=== PATIENT | male | born 1950 | race African-American/Black ===

== ENCOUNTER → 2017-12-14 | Outpatient (CLI) | payer OTHER ==
[~2017-12-14] MED LIST: ASPIRIN325; ATENOLOL 100MG100 M2; CIALIS20 MG; DIOVAN HCT 3201 EAC1; EFFIENT10 MG OR; INSPRA50 MG; LIPITOR80 MG
--- NOTE | ~2017-12-14 | 2DMMODE ---
[facility] [place] [address] 2 D/M-MODE ECHOCARDIOGRAM Name: ZACH NICE Room #: REG [facility]#: [id number] Admission: 12/14/17 Attend Phys: Juancarlos York MD Discharge: Date of : 46 Date of Service: 12/14/17 0954 Report #: [id number] THIS REPORT FOR: //name// APPROVED REPORT Study performed: 12/14/2017 07:46:03 EXAM: Comprehensive 2D, Doppler, and color-flow Echocardiogram Patient Location: Out-Patient Status: routine BSA: 2.44 HR: 76 bpm BP: 152/100 mmHg Rhythm: NSR/some arrhythmia noted Other Information Study Quality: Good Indications CAD. Hx: Stent, HTN, HLP, DM 2D Dimensions RVDd: 39.76 mm LVEF(%): 54.06 (>50%) IVSd: 11.47 (7-11mm) LVOT Diam: 22.63 (18-24mm) LVDd: 48.62 mm PWd: 12.13 (7-11mm) Ascending Ao: 31.17 (22-36mm) LVDs: 35.00 (25-40mm) Aortic Root: 35.02 mm Hart's LVEF: 54.06 % Volumes Left Atrial Volume (Systole) Single Plane 4CH: 66.22 mL Single Plane 2CH: 60.34 mL LA ESV Index: 29.00 mL/m2 Aortic Valve AoV Peak Rock.: 1.21 m/s AO Peak Gr.: 5.87 mmHg LVOT Max P.44 mmHg LVOT Max V: 1.05 m/s YESSI Vmax: 3.49 cm2 Mitral Valve E/A Ratio: 0.8 MV Decel. Time: 192.52 ms [facility] [place] [address] 2 D/M-MODE ECHOCARDIOGRAM Name: ZACH NICE Room #: REG [facility].#: [id number] Admission: 12/14/17 Attend Phys: Juancarlos York MD Discharge: Date of : 46 Date of Service: 12/14/17 0954 Report #: [id number] MV E Max Rock.: 0.65 m/s MV A Rock.: 0.80 m/s MV PHT: 55.83 ms IVRT: 124.57 ms Pulmonary Valve PV Peak Rock.: 1.26 m/s PV Peak Gr.: 6.35 mmHg Pulmonary Vein P Vein S: 0.42 m/s P Vein D: 0.30 m/s P Vein S/D Ratio: 1.40 Tricuspid Valve RAP Estimate: 5.00 mmHg Left Ventricle The left ventricle is normal size. Mild concentric left ventricular hypertrophy. Left ventricular systolic function is normal. LVEF is 55%. Mild diastolic dysfunction is present (impaired relaxation pattern). Right Ventricle The right ventricle is normal size. The right ventricular systolic function is normal. Atria The left atrium size is normal. The right atrium size is normal. Aortic Valve The Aortic valve is mildly sclerotic. No aortic regurgitation is present. There is no aortic valvular stenosis. Mitral Valve The mitral valve is normal in structure. Trace to mild mitral regurgitation. Tricuspid Valve The tricuspid valve is normal in structure. There is no tricuspid valve regurgitation noted. Unable to assess PA pressure. Pulmonic Valve The pulmonary valve is normal in structure. Trace pulmonic regurgitation. [facility] [place] [address] 2 D/M-MODE ECHOCARDIOGRAM Name: ZACH NICE HERNANDEZ Room #: REG [facility]#: [id number] Admission: 12/14/17 Attend Phys: Juancarlos York MD Discharge: Date of : 46 Date of Service: 12/14/17 0954 Report #: [id number] Great Vessels The aortic root is normal in size. The ascending aorta is normal in size. IVC is normal in size and collapses >50% with inspiration. Pericardium There is no pericardial effusion. <Conclusion> The left ventricle is normal size. Mild concentric left ventricular hypertrophy. Left ventricular systolic function is normal. Mild diastolic dysfunction is present (impaired relaxation pattern). The right ventricle is normal size. The left atrium size is normal. The Aortic valve is mildly sclerotic. Trace to mild mitral regurgitation. There is no pericardial effusion. <ELECTRONICALLY SIGNED> By: Juancarlos York MD 12/14/17 0954 0954 0954 Juancarlos York MD /INF
== END ==
LOC: CV 08:32
DX: I51.7 Cardiomegaly (principal); I10 Essential (primary) hypertension; E78.5 Hyperlipidemia, unspecified; E11.8 Type 2 diabetes mellitus with unspecified complications; I35.8 Other nonrheumatic aortic valve disorders

== ENCOUNTER → 2018-12-02 | Outpatient (CLI) | payer OTHER ==
[~2018-12-02] MED LIST changes: +ASPIR 8181 MG PO; +BYDUREON P2 MG/0.65 SUBQ; +CARVEDILOL12.5 MG PO; +CO Q-10100 MG PO; +CRESTOR40 MG PO; +DIOVAN HCT 3201 EAC1 PO; +FLOMAX0.4 MG PO; +IRBESARTAN-HCT1 EAC1 PO; +LEVAQUIN 500 M500 M2 PO; +METFORMIN HCL500 MG PO; +SPIRONOLACTONE25 MG PO; +WELCHOL 625 MG625 MG PO; +ZETIA10 MG PO
== END ==
LOC: NUC 08:21
DX: I25.10 Atherosclerotic heart disease of native coronary artery without angina pectoris (principal); E78.5 Hyperlipidemia, unspecified; I10 Essential (primary) hypertension; E11.9 Type 2 diabetes mellitus without complications; Z87.891 Personal history of nicotine dependence; Z79.899 Other long term (current) drug therapy; Z79.84 Long term (current) use of oral hypoglycemic drugs; Z88.8 Allergy status to other drugs, medicaments and biological substances

== ENCOUNTER 2018-12-27 09:14 | Observation (INO) | payer OTHER ==
[~2018-12-27] VITALS: Ht 195.6 cm; Wt 113.4 kg
[2018-12-27 10:07] LABS: HEMATOCRIT 39.5 % (42.0-52.0); HEMOGLOBIN 13.1 gm/dL (14.0-18.0); MCH 27.5 pg (26.0-34.0); MCHC 33.1 g/dL (28.0-37.0); MCV 82.8 fL (80.0-100.0); RBC 4.76 mil/uL (4.50-6.00); RDW 13.8 % (10.5-14.5); WBC 4.9 thou/uL (4.0-11.0)
[2018-12-27 10:17] LABS: CALCIUM 9.4 mg/dL (8.5-10.1); CREATININE 1.1 mg/dL (0.7-1.3); POTASSIUM 4.2 mmol/L (3.5-5.1)
[2018-12-27 10:20] VITALS: BP 171/84
[2018-12-27 13:25] VITALS: BP 158/93
--- NOTE | 2018-12-27 14:04 | EKG ---
[place] [address] [facility] [place] [address] ELECTROCARDIOGRAM REPORT Name: ZACH NICE HERNANDEZ Room #: 208-P [facility].#: [id number] ������������������ Admission: 12/27/18 ������������������ Attend Phys: Juancarlos York MD Discharge: ������������������ Date of : 46 Report #: [id number] ����������������������������������������������������������������� [id number] THIS REPORT FOR: //name// [facility] Test Date: 2018-12-27 Test Time: 10:04:43 Pat Name: ZACH NICE Department: Room: [facility] Gender: Peanut Sheller: Av JEAN : 1950 Requested By: Juancarlos York Order Number: [id number] MD: Ramin Watson Measurements Intervals [place] Rate: 87 P: 0 PA: 104 QRS: -90 QRSD: 161 T: 67 QT: 380 QTc: 457 Interpretive Statements Sinus rhythm with competing idioventricular rhythm Electronically Signed On 12-27-2018 14:04:14 CDT by Ramin Watson [email or web address] ��������������������������������������������� <ELECTRONICALLY SIGNED> ���������������������������������������� By: Ramin Watson MD ��������������������������������������������� 12/27/18 1404 1004 1004 MD MISTY Donahue
--- NOTE | 2018-12-27 16:44 | CATHLAB ---
[facility] [employer] [place] [address] INVASIVE PROCEDURE REPORT Name: ZACH NICE HERNANDEZ Room #: 208-P ADM IN .R.#: [id number] ������������� Admission: 12/27/18 ������������� Attend Phys: Juancarlos York MD Discharge: ��� ������������� ��� Date of : 46 Date of Service: 12/27/18 1644 �� Report #: [id number] �������� ��������������������������������������������[id number] THIS REPORT FOR: //name// APPROVED REPORT Study performed: 12/27/2018 10:59:31 Patient Details Patient Status: Out-Patient Room #: The patient is a 68 year-old male Event Personnel Juancarlos York Silk Screen Layout Drafter, Maggy Glynn RN RN, Deborah Kiser RN, Valerie Cheek Monitor, Luna Lawson RTR, GAMER Scrub Procedures Performed Art Access - R femoral artery* 84915 Initial Mod Sed Same Phys/QHP Gr5y 863009 16395 Mod Sed Same Phys/QHP Ea 737907 Left Heart Cath w/or w/o Coronaries [id number] [facility] [address] Place w/wo Plasty Single RCA 807642 Hemostasis w/ Mynx Indication Dyspnea, Positive stress test Risk Factors Hypercholesterolemia, Coronary Artery DiseaseHypertension, Diabetes Previous Procedures/Diagnoses Previous PCI Procedure Narrative The patient was brought electively to the Cardiac Catheterization Laboratory and was prepped and draped in a sterile manner. The Right Groin^ was infiltrated with 1% Lidocaine subcutaneous anesthesia. A PINNACLE 4FR Sheath #[id number] sheath was inserted into the RFA^. Coronary angiography was performed using coronary diagnostic catheters. The right coronary system was accessed and visualized with a JR 4 catheter. The left coronary system was accessed and visualized with a JL 4 catheter. The left ventricle was accessed and visualized with a Pigtail catheter. Left ventricular/Aortic Valve gradient assessed via catheter pullback. Left ventriculogram was performed in ALLISON projection. Pre-demployment femoral angiogram was performed . Closure device was deployed with a 6 Fr Mynx. The patient tolerated the procedure well and there were no complications associated with [facility] [address] [place] [address] INVASIVE PROCEDURE REPORT Name: ZACH NICE Room #: 208-P [facility] IN [facility].#: [id number] ������������� Admission: 12/27/18 ������������� Attend Phys: Juancarlos York MD Discharge: ��� ������������� ��� Date of : 46 Date of Service: 12/27/18 1644 �� Report #: [id number] �������� ��������������������������������������������[id number] the procedure. There was no hematoma. Intraoperative Conscious Sedation Sedation start time: 11:53 Case end Time: 12:57 Fentanyl 75 mcg Versed 1.5 mg Fluoro Time: 14.59 minutes Dose: DAP 91395.00 cGycm2 2175 mGy Contrast Type and Amount: Omnipaque 230 ml Coronary Angiography The patient's coronary anatomy is right dominant. Diagnostic Cath Left Main This is a large caliber vessel, patent with no flow-limiting lesions. LAD This a moderate size caliber vessel with a stent in the proximal segment, patent with mild restenosis. In the midsegment, there is a moderate stenosis, 40%. Diagonal 1 There appears to be a stent in the proximal segment, patent with mild to moderate restenosis, 30-40%. Circumflex There is moderate disease in the mid segment, 40%. OM1 There is a stent in the proximal segment, with borderline restenosis within the stent, 60-70%. Recommend medical therapy. OM2 This is a small-caliber vessel, with no flow-limiting lesions. Right Coronary This is a dominant vessel with multiple lesions in the proximal segment, 95%. There is a severe stenosis in the distal segment, 90%. R PDA This is a patent vessel, with no flow-limiting lesions. RPLV This is a patent vessel, with no flow-limiting lesions. Left Ventriculography The left ventricle is normal in size with decreased contractility. The left ventricular ejection fraction is estimated to be 40-45%. There is hypokinesis of inferior wall. Hemodynamics The aortic pressure is 184/110 mmHg with a mean of 140 mmHg. The left ventricular pressure is 188/4 mmHg with a mean of mmHg. The left ventricular end diastolic pressure is 30 mmHg. [facility] [address] [place] [address] INVASIVE PROCEDURE REPORT Name: ZACH NICE Room #: 208-P [facility] IN M.R.#: [id number] ������������� Admission: 12/27/18 ������������� Attend Phys: Juancarlos York MD Discharge: ��� ������������� ��� Date of : 46 Date of Service: 12/27/18 1644 �� Report #: [id number] �������� ��������������������������������������������[id number] PCI Technique Lesion Anticoagulation was achieved with Angiomax. Patient was preloaded with Effient. Percutaneous coronary intervention was performed on the proximal right coronary artery. The lesion stenosis prior to intervention was 95% with ELIZ 3 flow. A VISTA 6FR JR 4 #[id number] Guide Catheter was used to engage the ostium. A Luge Wire .014 x 182CM #[id number] Interventional Guidewire was used to cross the lesion. BALLOON DILATION A Balloon catheter Euphora RX 2.5 x 10 #[id number] was inserted and inflated up to 16.00atm for 26seconds. Additional Inflation: 16.00atm for 20seconds. STENT DEPLOYMENT A drug-eluting stent RESOLUTE MATTHEW RX 3.0 X 34 #[id number] was inserted and inflated up to 18.00atm for 15seconds. POST STENT DEPLOYMENT BALLOON DILATION A Balloon catheter TREK NC RX 3.5 X 15 #[id number] was inserted and inflated up to 16.00atm for 19seconds. Additional Inflation: 16.00atm for 16seconds. Additional Inflation: 16atm for 20seconds. Final angiography reveals 0 % stenosis with ELIZ 3 flow. PCI Technique Lesion 2 Percutaneous coronary intervention was performed on the distal right coronary artery. The lesion stenosis prior to intervention was 90% with ELIZ 3 flow. A VISTA 6FR JR 4 #[id number] Guide Catheter was used to engage the ostium. A Luge Wire .014 x 182CM #[id number] Interventional Guidewire was used to cross the lesion. Balloon Dilation A Balloon catheter Euphora RX 2.5 x 10 #[id number] was inserted and inflated up to 14.00atm for 11seconds. Additional Inflation: 14.00atm for 10seconds. Stent Deployment A drug-eluting stent RESOLUTE MATTHEW RX 2.5 X 22 #[id number] was inserted and inflated up to 12.00atm for 17seconds. Post Stent Deployment Balloon Dilation A Balloon catheter TREK NC RX 2.75 X 15 #[id number] was inserted and inflated up to 16.00atm for 20seconds. Additional Inflation: 14atm for 10seconds. Additional Inflation: 18.00atm for 15seconds. [facility] [address] [place] [address] INVASIVE PROCEDURE REPORT Name: ZACH NICE Room #: 208-P ADM IN M.R.#: [id number] ������������� Admission: 12/27/18 ������������� Attend Phys: Juancarlos York MD Discharge: ��� ������������� ��� Date of : 46 Date of Service: 12/27/181643 �� Report #: [id number] �������� ��������������������������������������������[id number] Final angiography reveals 0 % stenosis with ELIZ 3 flow. Conclusion 1. Successful insertion of drug-eluting stents into the proximal and distal segments of the RCA. 2. Patent LAD stent with mild restenosis. Moderate disease in the midsegment. 3. Borderline restenosis in OM1, recommend medical therapy. 4. Mild to moderate segmental LV dysfunction. 5. Recommend dual antiplatelet therapy and aggressive risk factor management. ��������������������������������������������� <ELECTRONICALLY SIGNED> ���������������������������������������� By: Juancarlos York MD ��������������������������������������������� 12/27/181643 43 43 Juancarlos York MD /INF
[2018-12-27] MEDS ORDERED: COREG25 MG PO (17:44)
[2018-12-27 19:56] VITALS: BP 164/102
--- NOTE | 2018-12-27 20:14 | NUR ---
PT HAD SCHEDULED CATH AND CAME TO FLOOR AFTER 2 STENTS PLACED. PT WAS A&OX4, VITALS WNL EXCEPT BLOOD PRESSURE HIGH. PT HAD 12.5 MG CARVEDILOL SCHEDULED, HOWEVER PT STATED HE TOOK 25MG BID AT HOME. DR. VILLANUEVA CALLED AND DOSAGED CHANGED PT GIVEN 25MG CARVEDELOL FOR HIGH BLOOD PRESSURE. PT HAD RIGHT GROIN ACCESS THAT REMAINED C/D/I NO BLEEDING/HEMATOMA. PT DENIED PAIN/COMPLAINT. PT UP AD TATY IN ROOM. WILL CONT WITH POC.
--- NOTE | 2018-12-27 20:22 | NUR ---
I have reviewed the documentation by from RICK GEIGER, JOY STUDENT to 2021 and I concur with it. SARA CONTI RN
[2018-12-28 00:52] VITALS: BP 186/127
[2018-12-28 02:07] LABS: HEMOGLOBIN 13.4 gm/dL (14.0-18.0); MCH 27.8 pg (26.0-34.0); MCHC 33.6 g/dL (28.0-37.0); MCV 82.8 fL (80.0-100.0); RBC 4.83 mil/uL (4.50-6.00); RDW 13.8 % (10.5-14.5)
[2018-12-28 02:21] LABS: ALBUMIN 4.1 g/dL (3.4-5.0); CREATININE 0.9 mg/dL (0.7-1.3); POTASSIUM 3.9 mmol/L (3.5-5.1); TOTAL BILIRUBIN 0.5 mg/dL (<0.1-1.0); TOTAL PROTEIN 7.9 g/dL (6.4-8.2)
[2018-12-28 04:55] VITALS: BP 167/112
[2018-12-28 07:30] VITALS: BP 154/97
[2018-12-28] MEDS ORDERED: EFFIENT10 MG PO (08:08)
--- NOTE | 2018-12-28 08:12 | NUR ---
ASSUME CARE 1900. PT STABLE. BP RUNS HIGH. BENICAR STARTED PER DR CARDONA. GROIN SITE CDI. SR/SA ON MONITOR. ADEQUATE VOID. ASSESSMENT ASA NOTED. PROGRESSING WELL WITH POC. PLAN IS POSSIBLE DISCHARGE TODAY. WILL CONTINUE TO MONITOR AND FOLLOW WITH POC
[2018-12-28 09:11] VITALS: BP 154/97
== END 2018-12-28 10:20 | disposition home or self-care (01) ==
LOC: CATH 09:14 → 2N 13:43 → ENTRNSPT 12-28 10:11 → EDTRNSPTSTS 12-28 10:13 → 2N 12-28 10:20
PROVIDERS: ADMIT Internal Medicine Cardiovascular Disease
DX: I25.110 Atherosclerotic heart disease of native coronary artery with unstable angina pectoris (principal); I10 Essential (primary) hypertension; E78.5 Hyperlipidemia, unspecified; E11.9 Type 2 diabetes mellitus without complications; I42.9 Cardiomyopathy, unspecified; Z91.040 Latex allergy status; Z79.899 Other long term (current) drug therapy

== ENCOUNTER → 2019-07-14 | Outpatient (CLI) | payer OTHER ==
[~2019-07-14] MED LIST changes: +COREG25 MG PO; +EFFIENT10 MG PO
--- NOTE | 2019-07-14 11:12 | 2DMMODE ---
[facility] [address] [place] [address] 2 D/M-MODE ECHOCARDIOGRAM Name: ZACH NICE Room #: REG [facility]#: [id number] Admission: 07/14/19 Attend Phys: Juancarlos York MD Discharge: Date of : 46 Report #: [id number] THIS REPORT FOR: //name// APPROVED REPORT Study performed: 07/14/2019 09:38:40 EXAM: Comprehensive 2D, Doppler, and color-flow Echocardiogram Patient Location: Echo lab BSA: 2.46 BP: 152/80 mmHg Rhythm: PVC's Other Information Study Quality: Good Indications Diabetes CAD Hypertension/HDD HLD 2D Dimensions RVDd: 36.72 mm IVSd: 10.31 (7-11mm) LVOT Diam: 23.23 (18-24mm) LVDd: 48.69 mm PWd: 12.28 (7-11mm) Ascending Ao: 30.86 (22-36mm) LVDs: 35.44 (25-40mm) Aortic Root: 30.90 mm IVC: 21.00 mm Volumes Left Atrial Volume (Systole) Single Plane 4CH: 84.64 mL Single Plane 2CH: 88.68 mL LA ESV Index: 37.00 mL/m2 Aortic Valve AoV Peak Rock.: 1.69 m/s AO Peak Gr.: 11.43 mmHg LVOT Max P.54 mmHg LVOT Max V: 1.28 m/s YESSI Vmax: 3.20 cm2 Mitral Valve [facility] [address] [place] [address] 2 D/M-MODE ECHOCARDIOGRAM Name: ZACH NICE Room #: REG [facility]#: [id number] Admission: 07/14/19 Attend Phys: Juancarlos York MD Discharge: Date of : 46 Report #: [id number] E/A Ratio: 0.7 MV Decel. Time: 254.10 ms MV E Max Rock.: 0.73 m/s MV A Rock.: 1.04 m/s MV PHT: 73.69 ms Pulmonary Valve PV Peak Rock.: 1.33 m/s PV Peak Gr.: 7.12 mmHg Pulmonary Vein P Vein S: 0.64 m/s P Vein A: 0.33 m/s P Vein D: 0.43 m/s P Vein A Dur.: 189.2 msec P Vein S/D Ratio: 1.49 Tricuspid Valve TR Peak Rock.: 2.81 m/s RAP Estimate: 5.00 mmHg TR Peak Gr.: 31.63 mmHg PA Pressure: 37.00 mmHg Left Ventricle The left ventricle is normal size. There is normal left ventricular wall thickness. Left ventricular systolic function is mildly decreased. There is hypokinesis of the mid to inferior wall. LVEF is 45-50%. Mild diastolic dysfunction is present (impaired relaxation pattern). Right Ventricle The right ventricle is normal size. The right ventricular systolic function is normal. Atria Left atrium is mildly dilated. Right atrium is at the upper limits of normal. Aortic Valve Aortic valve is mildly calcified. Trace aortic regurgitation. There is no aortic valvular stenosis. Mitral Valve The mitral valve is normal in structure. Mild mitral regurgitation. No evidence of mitral valve stenosis. Tricuspid Valve The tricuspid valve is normal in structure. Mild tricuspid regurgitation. PAP is estimated at 37 mmHg. [facility] [address] [place] [address] 2 D/M-MODE ECHOCARDIOGRAM Name: ZACH NICE [id number] Admission: 07/14/19 Attend Phys: Juancarlos York MD Discharge: Date of : 46 Report #: [id number] Pulmonic Valve The pulmonary valve is normal in structure. Trace pulmonic regurgitation. Great Vessels The aortic root is normal in size. IVC is normal in size and collapses >50% with inspiration. Pericardium There is no pericardial effusion. <Conclusion> The left ventricle is normal size. There is normal left ventricular wall thickness. Left ventricular systolic function is mildly decreased. There is hypokinesis of the mid to inferior wall. Mild diastolic dysfunction is present (impaired relaxation pattern). The right ventricle is normal size. Left atrium is mildly dilated. Trace aortic regurgitation. Mild mitral regurgitation. Mild tricuspid regurgitation. PAP is estimated at 37 mmHg. <ELECTRONICALLY SIGNED> By: Juancarlos York MD 07/14/19 1111 1111 1111 Juancarlos York MD /INF
== END ==
LOC: CV 09:24
DX: I08.1 Rheumatic disorders of both mitral and tricuspid valves (principal); E11.9 Type 2 diabetes mellitus without complications; I25.10 Atherosclerotic heart disease of native coronary artery without angina pectoris; I10 Essential (primary) hypertension; E78.5 Hyperlipidemia, unspecified

== ENCOUNTER 2019-09-12 06:35 | Outpatient (CLI) | payer OTHER ==
[~2019-09-12] VITALS: Ht 195.6 cm; Wt 113.4 kg
[2019-09-12] VITALS (14 sets, daily range): BP systolic 137–181; BP diastolic 77–94
[2019-09-12 07:36] LABS: ABSOLUTE NEUTROPHILS 2.6 thou/uL (1.4-8.2); BASOPHILS 0.7 % (0.0-2.0); EOSINOPHILS 1.6 % (0.0-3.0); HEMATOCRIT 39.9 % (42.0-52.0); HEMOGLOBIN 12.8 gm/dL (14.0-18.0); LYMPHOCYTES 38.2 % (24.0-44.0); MCH 26.7 pg (26.0-34.0); MCV 83.3 fL (80.0-100.0); MONOCYTES 10.8 % (1.0-8.0); PLATELET COUNT 206 thou/uL (150-400); POLYS 48.7 % (36.0-66.0); PROTIME 10.5 Seconds (9.3-11.4); RBC 4.79 mil/uL (4.50-6.00); RDW 13.4 % (10.5-14.5); WBC 5.4 thou/uL (4.0-11.0)
[2019-09-12 07:42] LABS: ALBUMIN 4.3 g/dL (3.4-5.0); CALCIUM 9.4 mg/dL (8.5-10.1); CREATININE 1.1 mg/dL (0.7-1.3); POTASSIUM 4.1 mmol/L (3.5-5.1); TOTAL BILIRUBIN 0.7 mg/dL (<0.1-1.0); TOTAL PROTEIN 8.4 g/dL (6.4-8.2)
--- NOTE | 2019-09-12 18:17 | NUR ---
PT ADMITED FROM IAP DISPLAYS ANALYST. ADMISSION HX AND ASSESSMENT COMPLETED. RIGHT AND GROIN INCISION C/D/I. NO HEMATOMA NOTED. POST OP INSTRUCTIONS GIVEN TO PT. PT VERBERLISED UNDERSTANDING. ON BEDREST UNTIL 2129. DENIED HAVING PAIN. WILL CONTINUE TO MONITOR.
[2019-09-13 00:45] VITALS: BP 140/81
[2019-09-13 04:00] VITALS: BP 156/85
--- NOTE | 2019-09-13 06:02 | NUR ---
PATIENT COMPLAIN OF BACK PAIN BUT FELT BETTER AFTER HE'S OFF BEDREST.BILATERAL GROIN C/D/I.VOIDED.POC CONTINUED.
[2019-09-13 07:30] VITALS: BP 166/86
[2019-09-13 10:09] VITALS: BP 156/85
--- NOTE | 2019-09-13 10:46 | NUR ---
ASSUMED CARE AT 0700, SHIFT ASSESSMENT DONE, MEDS GIVEN, VSS. DENIES PAIN, NAUSEA, VOMITING. LEFT AND RIGHT GROIN SITE CLEAN, DRY, INTACT. DISCHARGE ORDER RECEIVED, PERIPHERAL IV WAS TAKEN OUT, TELE DC'D. DISCHARGE PAPER WORK GIVEN. LEFT WITH [facility]ER TRANSPORT AT 1030.
--- NOTE | 2019-09-14 11:10 | D ---
[facility] [place] [address] DISCHARGE SUMMARY Name: TEXZACHBonnie NG [facility] [id number] Admission: 09/12/19 Attend Phys: Ramin Watson MD Discharge: 09/13/19 Date of : 46 Report #: [id number] THIS REPORT FOR: //name// CC: Ronnie Watson DIAGNOSES: 1. Nonsustained ventricular tachycardia. 2. Frequent premature ventricular contractions. 3. Coronary artery disease, status post myocardial infarction. PROCEDURE PERFORMED: VT ablation. HISTORY OF PRESENT ILLNESS: The patient is a 68-year-old male with frequent PVCs and nonsustained VT, here for EP study and was found to have a PVC arising from the posterior lateral mid left ventricle. This was successfully ablated. He did not have inducible monomorphic ventricular tachycardia; therefore, we did not recommend ICD implantation. HOSPITAL COURSE: The patient was monitored in the CCU overnight and did well. He denied any fevers, chills, chest pain, shortness of breath or palpitations. On the day of discharge, on telemetry, he remained in sinus rhythm with no further PVCs. PHYSICAL EXAMINATION: GENERAL: No acute distress. HEART: Regular rate and rhythm. LUNGS: Clear to auscultation bilaterally. ABDOMEN: Soft, nontender, nondistended. EXTREMITIES: No clubbing, cyanosis, edema and groins showed no significant bruising or hematoma. As such, he was deemed stable for discharge home. He will continue on his same home medications. He will follow up with me in 3 months. <ELECTRONICALLY SIGNED> By: Ramin Watson MD 09/14/19 1110 0748 0945 Ramin Watson MD /nt
--- NOTE | 2019-09-15 17:32 | P ---
[facility] [place] [address] PROCEDURE REPORT Name: ZACH NICE Room #: DEP Elda Mason#: [id number] Admission: 09/12/19 Attend Phys: Ramin Watson MD Discharge: 09/13/19 Date of : 46 Report #: [id number] THIS REPORT FOR: //name// CC: Ronnie Watson DATE OF SERVICE: 09/12/2019 PREOPERATIVE DIAGNOSES: 1. Coronary artery disease. 2. Symptomatic premature ventricular contractions. 3. Nonsustained ventricular tachycardia. PROCEDURES PERFORMED: 1. VT ablation, CPT code 71892. 2. EP with left atrial pacing and recording, CPT code 83251. 3. Program stimulation and pacing after IV drug infusion, CPT code 73152. 4. Intracardiac echocardiography, CPT code 21264. 5. Arterial line placement, CPT code 99999. 6. 3D mapping, CPT code 05897. DESCRIPTION OF PROCEDURE: The patient is a 68-year-old male who recently has been having increased fatigue and shortness of breath. He has a history of coronary artery disease, status post prior inferior wall KS. Recent echo shows normal LV size and function, EF 50-55% with some inferior hypokinesis. He wore recent gambling monitor showing a PVC burden that is approximately 25%. He also had some evidence of nonsustained VT. He has a PVC morphology that his right bundle branch-block transitions in V3 and is negative in leads II, III and aVF. He is here for EP study, possible ICD implantation, possible PVC or VT ablation. ANESTHESIA: The patient underwent MAC anesthesia with no anesthesia related complications. DESCRIPTION OF PROCEDURE: The patient underwent informed consent. We discussed the details of the procedure including the risks, which include but not limited to bleeding, vascular damage, stroke, KS as well as damage to the kasaan conduction system requiring permanent pacemaker. He understood these risks and is willing to proceed. The patient was brought to the EP laboratory in fasting and sedated state, prepped and draped in a standard fashion. Next, I obtained access to the bilateral femoral veins and the right femoral artery. Sheaths were positioned using the modified Seldinger technique. In the right femoral artery, I placed an 8-Trinidadian short sheath. In the right femoral vein, I placed an 8-Trinidadian short sheath and a 9-Trinidadian short sheath. In the left femoral vein, I placed a 7-Trinidadian short sheath and a 6-Trinidadian short sheath. Next, under fluoroscopy, I [facility] [address] [place] [address] PROCEDURE REPORT Name: ZACH NICE HERNANDEZ Room #: DEP CLElda Mason#: [id number] Admission: 09/12/19 Attend Phys: Ramin Watson MD Discharge: 09/13/19 Date of : 48 Report #: [id number] placed a decapolar catheter into the coronary sinus for left atrial pacing and recording. I then paced the RV catheter into the right ventricular apex. Next, an ICE catheter was placed into the right atrium. Using intracardiac ultrasound, I created a detailed 3D geometry of the left atrium with specific emphasis of the aorta, aortic valves, the cusps, left ventricular outflow tract, left ventricle and the papillary muscles as well as the mitral valve. A basic EP study was performed. Atrial burst pacing was performed and AV block was noted at 290 milliseconds. Ventricular pacing was performed and VA block was noted to be less than 280 milliseconds. With single atrial extrastimuli, I did induce an SVT at 320 milliseconds at a [address] cycle length. The tachycardia cycle length was 480 milliseconds. This appeared to be an atrial tachycardia with biphasic P waves noted in II, III and aVF. This was only induced once or twice, but was not induced after the PVC ablation was performed. At baseline, the patient was in sinus rhythm and was having PVCs every 5-10 beats. These PVCs were right bundle-branch block, they transitioned in V3 and were negative in leads II, III and aVF suggestive that they were coming from the left ventricle, likely inferior lateral location. Next, the patient was systemically heparinized and using a PentaRay, I created a 3D geometry of the left ventricle as well as an activation map. As suspected, these were arising from an inferior lateral location at the mid ventricle. We made a pretty detailed anatomy of the left ventricle and when this was concluded, I removed the PentaRay catheter and did further mapping using the SmartTouch ThermoCool ablation catheter. Quickly we went to the location of interest and pace maps initially were 85-90%. As I moved from my initial location, we started getting better pace maps at around 90-95%. I then found a location where pace maps were around 97%. There were some signals here that were about 10-15 milliseconds pre-QRS. There were nice unipolar signals at this location as well. I performed ablation at 50 hammer. Contact was around 3 grams force. I would get frequent ectopy when ablating at this site, but the PVCs did not go away. We kept mapping and performing pace maps and eventually found a location that appeared to be the earliest. At this location, I performed ablation for approximately 4 minutes and 50 hammer and contact was anywhere from 1-10 grams. I performed ablation throughout this area of interest and would micro manipulate the ablation catheter at this site. At one location, I got a very nice flurry of nonsustained VT ablating at this site. After coming off ablation, the patient had no further PVCs. POST-ABLATION EP STUDY: Post-ablation, I removed the ablation catheter from the left ventricle. Given that he has coronary artery disease, we wanted to ensure that he does not have any monomorphic ischemic induced VT. I therefore performed ventricular stimulation. I performed the Vstim with triple extrastimuli at [address] cycle lengths and he had no inducible sustained monomorphic VT. Next, isoproterenol infusion was initiated at 1 mcg per minute. AV block was noted at 300 milliseconds. AV inocencio ERP was noted at 260 milliseconds at [address] cycle length as noted above, there was no further evidence of this atrial tachycardia that he was [facility] [address] [place] [address] PROCEDURE REPORT Name: TEXZACH HERNANDEZ Room #: DEP LUCIANO Mason#: [id number] Admission: 09/12/19 Attend Phys: Ramin Watson MD Discharge: 09/13/19 Date of : 48 Report #: [id number] previously exhibiting. We monitored for a period of 45 minutes and he no longer had any recurrence of his clinical PVC. As such, the procedure was concluded. Using intracardiac ultrasound, I verified that there was no pericardial effusion. Of note, prior to performing the ablation, the patient did have evidence of a trace effusion before we had done anything and this was unchanged post-ablation as well. This was probably some physiologic level of fluid noted mostly around the left atrium, but nothing around the left ventricle. As such, the patient received systemic protamine and once the ACT was within acceptable range, catheters and sheaths were pulled and hemostasis was obtained. The patient awoke neurologically and hemodynamically intact. No complications and no significant bleeding. CONCLUSIONS: 1. Successful ablation of a PVC that was arising from the posterior lateral left ventricle at around the mid level of the left ventricle. 2. No inducible monomorphic ventricular tachycardia with ventricular stimulation. 3. Induction of an atrial tachycardia of unknown clinical significance. 4. Normal SA inocencio function. 5. Normal AV inocencio function. 6. No other inducible arrhythmias on or off isoproterenol. <ELECTRONICALLY SIGNED> By: Ramin Watson MD 09/15/19 1732 1528 0159 Ramin Watson MD /nt
== END 2019-09-13 10:40 | disposition home or self-care (01) ==
LOC: CATH 06:35 → 2N 15:53 → CATH 20:43 → ENTRNSPT 09-13 10:21 → EDTRNSPTSTS 09-13 10:29 → CATH 09-13 10:40
PROVIDERS: Internal Medicine Cardiovascular Disease
DX: I49.3 Ventricular premature depolarization (principal); I47.2 Ventricular tachycardia; I25.10 Atherosclerotic heart disease of native coronary artery without angina pectoris; I42.9 Cardiomyopathy, unspecified; I10 Essential (primary) hypertension; E11.9 Type 2 diabetes mellitus without complications; E78.5 Hyperlipidemia, unspecified; M19.90 Unspecified osteoarthritis, unspecified site; K21.9 Gastro-esophageal reflux disease without esophagitis; Z98.890 Other specified postprocedural states; Z79.899 Other long term (current) drug therapy; Z96.652 Presence of left artificial knee joint; Z79.4 Long term (current) use of insulin; Z87.891 Personal history of nicotine dependence; Z91.041 Radiographic dye allergy status; Z88.8 Allergy status to other drugs, medicaments and biological substances; Z79.82 Long term (current) use of aspirin
CPT/HCPCS: 10081; 62110; 62900; 65020; 65040; 70005

== ENCOUNTER → 2019-10-06 | Outpatient (CLI) | payer OTHER | LOC: SJCVC 14:52 | DX: I11.9 Hypertensive heart disease without heart failure (principal); R94.31 Abnormal electrocardiogram [ECG] [EKG]; I47.1 Supraventricular tachycardia; I49.3 Ventricular premature depolarization; I25.10 Atherosclerotic heart disease of native coronary artery without angina pectoris; E11.9 Type 2 diabetes mellitus without complications; E78.5 Hyperlipidemia, unspecified; Z79.82 Long term (current) use of aspirin; Z79.84 Long term (current) use of oral hypoglycemic drugs; Z79.899 Other long term (current) drug therapy; Z87.891 Personal history of nicotine dependence; Z98.890 Other specified postprocedural states; Z95.1 Presence of aortocoronary bypass graft ==

== ENCOUNTER → 2019-10-19 | Outpatient (CLI) | payer OTHER | LOC: SJCVC 12:44 | DX: I25.5 Ischemic cardiomyopathy (principal); R94.31 Abnormal electrocardiogram [ECG] [EKG]; I49.3 Ventricular premature depolarization; I47.2 Ventricular tachycardia; I47.1 Supraventricular tachycardia; I25.10 Atherosclerotic heart disease of native coronary artery without angina pectoris; E11.9 Type 2 diabetes mellitus without complications; E78.5 Hyperlipidemia, unspecified; Z79.82 Long term (current) use of aspirin; Z79.84 Long term (current) use of oral hypoglycemic drugs; Z79.899 Other long term (current) drug therapy; Z87.891 Personal history of nicotine dependence; Z95.9 Presence of cardiac and vascular implant and graft, unspecified; Z98.890 Other specified postprocedural states ==

== ENCOUNTER → 2019-12-14 | Outpatient (CLI) | payer OTHER | LOC: SJCVC 12:56 | DX: I47.1 Supraventricular tachycardia (principal); I47.2 Ventricular tachycardia; I49.3 Ventricular premature depolarization; I10 Essential (primary) hypertension; E11.9 Type 2 diabetes mellitus without complications; E78.5 Hyperlipidemia, unspecified; I25.10 Atherosclerotic heart disease of native coronary artery without angina pectoris; Z79.82 Long term (current) use of aspirin; Z79.899 Other long term (current) drug therapy; Z87.891 Personal history of nicotine dependence ==

== ENCOUNTER → 2020-01-12 | Outpatient (CLI) | payer OTHER | LOC: SJCVC 10:11 | DX: R94.31 Abnormal electrocardiogram [ECG] [EKG] (principal); I25.10 Atherosclerotic heart disease of native coronary artery without angina pectoris; I10 Essential (primary) hypertension; E78.00 Pure hypercholesterolemia, unspecified; I49.3 Ventricular premature depolarization; E78.5 Hyperlipidemia, unspecified; Z79.82 Long term (current) use of aspirin; Z79.899 Other long term (current) drug therapy; Z87.891 Personal history of nicotine dependence ==

== ENCOUNTER → 2020-06-14 | Outpatient (CLI) | payer OTHER | LOC: SJCVC 13:15 | PROVIDERS: ATTEND Internal Medicine Cardiovascular Disease | DX: R94.31 Abnormal electrocardiogram [ECG] [EKG] (principal); I25.10 Atherosclerotic heart disease of native coronary artery without angina pectoris; I49.40 Unspecified premature depolarization; I47.1 Supraventricular tachycardia ==

== ENCOUNTER → 2020-07-18 | Outpatient (CLI) | payer OTHER | LOC: SJCVCIMAG 09:11 | PROVIDERS: ATTEND Internal Medicine Cardiovascular Disease | DX: I08.2 Rheumatic disorders of both aortic and tricuspid valves (principal); R94.31 Abnormal electrocardiogram [ECG] [EKG]; I11.9 Hypertensive heart disease without heart failure; I25.10 Atherosclerotic heart disease of native coronary artery without angina pectoris; E78.00 Pure hypercholesterolemia, unspecified; I49.3 Ventricular premature depolarization; I49.40 Unspecified premature depolarization; Z79.899 Other long term (current) drug therapy; Z87.891 Personal history of nicotine dependence ==

== ENCOUNTER 2020-12-11 14:06 | Inpatient (IN) | payer OTHER ==
[~2020-12-11] VITALS: Ht 195.6 cm; Wt 108.0 kg
[2020-12-11] VITALS (7 sets, daily range): BP systolic 166–182; BP diastolic 83–90
[~2020-12-11 14:06] MED LIST changes: -AVALIDE 300-121 EACH PO; -BACTRIM DS TAB1 EAC1 PO; -NEURONTIN 300M300 M2 PO; -SOTALOL 120 MG120 MG PO
[2020-12-11] MEDS ORDERED: NEURONTIN 300M300 M2 PO (14:25)
[2020-12-11 14:40] LABS: ANION GAP 10 mmol/L (7-16); BUN 16 mg/dL (7-18); CALCIUM 9.1 mg/dL (8.5-10.1); CHLORIDE 105 mmol/L (98-107); CO2 26 mmol/L (21-32); CREATININE 1.1 mg/dL (0.7-1.3); GLUCOSE 182 mg/dL (74-106); POTASSIUM 4.1 mmol/L (3.5-5.1); SODIUM 141 mmol/L (136-145)
[2020-12-11 14:49] LABS: HEMATOCRIT 34.9 % (42.0-52.0); HEMOGLOBIN 11.4 gm/dL (14.0-18.0); MCH 27.5 pg (26.0-34.0); MCHC 32.7 g/dL (28.0-37.0); RBC 4.16 mil/uL (4.50-6.00); RDW 14.7 % (10.5-14.5); WBC 6.2 thou/uL (4.0-11.0)
[2020-12-11 14:51] LABS: ALBUMIN 3.7 g/dL (3.4-5.0); AMYLASE 86 U/L (25-115); DIRECT BILIRUBIN < 0.1 mg/dL (<0.1-0.2); LIPASE 150 U/L (73-393); MAGNESIUM 1.7 mg/dL (1.8-2.4); PHOSPHORUS 3.2 mg/dL (2.6-4.7); SGOT 15 U/L (15-37); SGPT 27 U/L (16-63); TOTAL BILIRUBIN 0.3 mg/dL (0.2-1.0); TOTAL PROTEIN 7.8 g/dL (6.4-8.2); TROPONIN-I <0.06 ng/mL (<0.06)
[2020-12-11 15:12] LABS: INR 0.98; PROTIME 10.7 Seconds (9.3-11.4)
--- NOTE | 2020-12-11 17:31 | EKG ---
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
[2020-12-12 04:43] VITALS: BP 167/80
[2020-12-12 05:27] LABS: HEMOGLOBIN 10.8 gm/dL (14.0-18.0); MCH 27.7 pg (26.0-34.0); MCHC 32.8 g/dL (28.0-37.0); MCV 84.6 fL (80.0-100.0); RBC 3.9 mil/uL (4.50-6.00); RDW 14.7 % (10.5-14.5); WBC 5.9 thou/uL (4.0-11.0)
[2020-12-12 05:52] LABS: CALCIUM 8.9 mg/dL (8.5-10.1); POTASSIUM 4.5 mmol/L (3.5-5.1)
[2020-12-12 07:15] VITALS: BP 176/74
[2020-12-12 12:00] VITALS: BP 164/84
--- NOTE | 2020-12-12 15:11 | 2DMMODE ---
[facility] [place] [address] 2 D/M-MODE ECHOCARDIOGRAM Name: ZACH NICE Room #: 217-P ADM IN M.R.#: [id number] Admission: 12/11/20 Attend Phys: Ramin Watson MD Discharge: Date of : 48 Report #: [id number] THIS REPORT FOR: cc: Ronnie Hoang MD, Eric K. MD Park, Jin S. MD ~ ADDENDUM APPROVED REPORT Study performed: 12/12/2020 09:51:34 EXAM: Comprehensive 2D, Doppler, and color-flow Echocardiogram Patient Location: Bedside Room #: 217 BSA: 2.43 HR: 66 bpm BP: 176/74 mmHg Rhythm: NSR Other Information Study Quality: Good Indications Diabetes CAD Hypertension/HDD 2D Dimensions RVDd: 30.81 mm IVSd: 9.85 (7-11mm) LVOT Diam: 20.31 (18-24mm) LVDd: 52.14 mm PWd: 10.49 (7-11mm) Ascending Ao: 36.69 (22-36mm) LVDs: 37.02 (25-40mm) Left Atrium: 48.36 (27-40mm) Aortic Root: 34.59 mm IVC: 24.00 mm Volumes Left Atrial Volume (Systole) Single Plane 4CH: 88.10 mL Single Plane 2CH: 72.48 mL LA ESV Index: 35.00 mL/m2 Aortic Valve AoV Peak Rock.: 1.45 m/s AO Peak Gr.: 8.45 mmHg LVOT Max P.86 mmHg [facility] [address] [place] [address] 2 D/M-MODE ECHOCARDIOGRAM Name: ZACH NICE Room #: 217-P [facility] IN ..#: [id number] Admission: 12/11/20 Attend Phys: [facility]: Date of : 48 Report #: [id number] LVOT Max V: 0.98 m/s YESSI Vmax: 2.19 cm2 Mitral Valve E/A Ratio: 0.7 MV Decel. Time: 217.90 ms MV E Max Rock.: 0.57 m/s MV A Rock.: 0.78 m/s MV PHT: 63.19 ms IVRT: 79.58 ms Pulmonary Valve PV Peak Rock.: 1.22 m/s PV Peak Gr.: 5.99 mmHg Pulmonary Vein P Vein S: 0.57 m/s P Vein A: 0.37 m/s P Vein D: 0.37 m/s P Vein A Dur.: 101.5 msec P Vein S/D Ratio: 1.54 Tricuspid Valve TR Peak Rock.: 2.53 m/s TR Peak Gr.: 25.55 mmHg PA Pressure: 35.00 mmHg Left Ventricle The left ventricle is normal size. Hypokinesis of the inferior segment. There is normal left ventricular wall thickness. Left ventricular systolic function is mildly decreased. LVEF is 45-50%. Grade I - abnormal relaxation pattern. Right Ventricle The right ventricle is normal size. The right ventricular systolic function is normal. Atria Left atrium is dilated. Right atrium is at the upper limits of normal. Aortic Valve The aortic valve is normal in structure. Aortic valve is calcified. No aortic regurgitation is present. There is no aortic valvular stenosis. Mitral Valve The mitral valve is normal in structure. Mild mitral regurgitation. No evidence of mitral valve stenosis. [facility] [address] [place] [address] 2 D/M-MODE ECHOCARDIOGRAM Name: ZACH NICE HERNANDEZ Room #: 217-P ADM IN M.R.#: [id number] Admission: 12/11/20 Attend Phys: Ramin Watson Discharge: Date of : 46 Report #: [id number] Tricuspid Valve The tricuspid valve is normal in structure. There is trace tricuspid regurgitation. Estimated PAP 35 mmHg. There is mild pulmonary hypertension. Pulmonic Valve The pulmonary valve is normal in structure. There is no pulmonic valvular regurgitation. Great Vessels The aortic root is normal in size. IVC is dilated and collapses >50% with inspiration. Pericardium There is no pericardial effusion. <Conclusion> The left ventricle is normal size. There is normal left ventricular wall thickness. Left ventricular systolic function is mildly decreased. Grade I - abnormal relaxation pattern. The right ventricle is normal size. Left atrium is dilated. Aortic valve is calcified. Mild mitral regurgitation. <ELECTRONICALLY SIGNED> By: Juancarlos York MD 12/12/201509 09 09 Juancarlos York MD /INF
[2020-12-12 15:16] LABS: ABSOLUTE NEUTROPHILS 3.4 thou/uL (1.4-8.2); BASOPHILS 0.7 % (0.0-2.0); EOSINOPHILS 2.5 % (0.0-3.0); HEMATOCRIT 31.4 % (42.0-52.0); HEMOGLOBIN 10.6 gm/dL (14.0-18.0); LYMPHOCYTES 27.8 % (24.0-44.0); MCHC 33.7 g/dL (28.0-37.0); MCV 83.2 fL (80.0-100.0); PLATELET COUNT 238 thou/uL (150-400); RBC 3.77 mil/uL (4.50-6.00); RDW 15.3 % (10.5-14.5); WBC 5.8 thou/uL (4.0-11.0)
--- NOTE | 2020-12-12 15:18 | CATHLAB ---
[facility] [address] [address] INVASIVE PROCEDURE REPORT Name: ZACH NICE Room #: 217-P ADM IN M.R.#: [id number] Admission: 12/11/20 Attend Phys: Ramin Watson MD Discharge: Date of : 48 Report #: [id number] THIS REPORT FOR: cc: Ronnie Hoang MD, Eric K. MD Park, Jin S. MD ~ APPROVED REPORT Study performed: 12/12/2020 12:27:20 Patient Details Patient Status: In-Patient Room #: The patient is a 70 year-old male Event Personnel Juancarlos York Vacuum Filter Operator, Juan Manuel Beltrán RTR Lulu Venegas Nancy RTR, ADJUNCT LATIN PROFESSOR Monitor, Jose G Buck RN RN, Angelica Mota RTR Monitor Procedures Performed Art Access - R femoral artery* Left Heart Cath w/or w/o Coronaries [id number] [facility] [address] Initial Mod Sed Same Phys/QHP Gr5y 238373 Hemostasis with Manual pressure Indication Arrhythmia, Dyspnea, Cardiomyopathy, Patient was found to have slow ventricular tachycardia. Risk Factors HypercholesterolemiaPhysical Activity, Coronary Artery DiseaseHypertension, Diabetes Previous Procedures/Diagnoses Previous PCI, Previous LA Procedure Narrative The patient was brought electively to the Cardiac Catheterization Laboratory and was prepped and draped in a sterile manner. The Right Groin^ was infiltrated with 1% Lidocaine subcutaneous anesthesia. A PINNACLE 4FR Sheath #[id number] sheath was inserted into the RFA^. Coronary angiography was performed using coronary diagnostic catheters. The right coronary system was accessed and visualized with a JR4 catheter. The left coronary system was accessed and visualized with a JL4 catheter. The left ventricle was accessed and visualized [facility] [place] [address] [place] [address] INVASIVE PROCEDURE REPORT Name: ZACH NICE Room #: 217-P [facility] IN [facility]#: [id number] Admission: 12/11/20 Attend Phys: Ramin Watson Discharge: Date of : 48 Report #: [id number] with a PIGTAIL catheter. Left ventricular/Aortic Valve gradient assessed via catheter pullback. Left ventriculogram was performed in 30 degree projection. Hemostasis was obtained with manual pressure following sheath removal without any complications. The patient tolerated the procedure well and there were no complications associated with the procedure. There was no hematoma. Intraoperative Conscious Sedation Sedation start time: 13:07 Case end Time: 13:40 Fentanyl 50 mcg Versed 1 mg Fluoro Time: 1.90 minutes Dose: DAP 8018.60 cGycm2 1119 mGy Contrast Type and Amount: Omnipaque 95 ml Coronary Angiography The patient's coronary anatomy is right dominant. Diagnostic Cath Left Main The left main artery is a large-caliber vessel, patent with no flow-limiting lesions. LAD The LAD is a moderate-sized caliber vessel, travels down the anterior wall and wraps around the apex. There is a stent in the proximal segment, patent with minimal restenosis. In the midsegment, there is a severe de osiris stenosis, 80%. Diagonal 1 There is a moderate-sized caliber vessel with a stent in the proximal segment with moderate restenosis. Diagonal 2 This is a small to moderate-sized caliber vessel, with no obstructive disease. Circumflex The left circumflex artery is a moderate-sized caliber vessel with moderate disease in the midsegment. OM1 This is a moderate-sized caliber vessel with a severe restenosis in the proximal stent. OM2 This is a small caliber vessel, with no flow-limiting lesions. Right Coronary The RCA is a dominant vessel. There are patent stents in the proximal and mid segments. In the distal segment there are 2 severe tandem lesions of 80% just before the takeoff of the PDA. R PDA This is a moderate-sized caliber vessel, with no flow-limiting lesions. RPLV This is a moderate-sized caliber vessel, with no flow-limiting lesions. Left Ventriculography The left ventricle is normal in size with Abnormal contractility. [facility] [address] [place] [address] INVASIVE PROCEDURE REPORT Name: ZACH NICE Room #: 217-P [facility] IN M.R.#: [id number] Admission: 12/11/20 Attend Phys: Ramin Watson Discharge: Date of : 48 Report #: [id number] left ventricular ejection fraction is estimated to be 40-45%. There is hypokinesis of the inferior wall. Hemodynamics The aortic pressure is 151/121 mmHg with a mean of 132 mmHg. The left ventricular pressure is 157/12 mmHg with a mean of mmHg. The left ventricular end diastolic pressure is 24 mmHg. Conclusion 1. Severe three-vessel coronary artery disease. 2. There is mild to moderate segmental LV dysfunction. 3. Recommend CV surgical consultation. <ELECTRONICALLY SIGNED> By: Juancarlos York MD 12/12/20 151 16 151 Juancarlos York MD /INF
[2020-12-12 15:29] LABS: CALCIUM 9.1 mg/dL (8.5-10.1); CREATININE 0.9 mg/dL (0.7-1.3); POTASSIUM 4.4 mmol/L (3.5-5.1)
[2020-12-12 15:31] LABS: APTT 28.7 Seconds (24.5-32.8); INR 1.05; PROTIME 11.4 Seconds (9.3-11.4)
[2020-12-12 15:35] LABS: ALBUMIN 3.4 g/dL (3.4-5.0); TOTAL BILIRUBIN 0.4 mg/dL (0.2-1.0); TOTAL PROTEIN 7.1 g/dL (6.4-8.2)
[2020-12-12 15:54] LABS: URINE BILIRUBIN NEGATIVE (Negative); URINE BLOOD NEGATIVE (Negative); URINE CLARITY CLEAR; URINE COLOR YELLOW; URINE GLUCOSE-RANDOM* NEGATIVE (Negative); URINE KETONES NEGATIVE (Negative); URINE NITRITE-REFLEX NEGATIVE (Negative); URINE PROTEIN (DIPSTICK) NEGATIVE (Negative); URINE SPECIFIC GRAVITY 1.015 (1.005-1.035); URINE UROBILINOGEN 0.2 E.U./dl (0.2-1.0)
[2020-12-12 16:00] LABS: URINE LEUKOCYTES-REFLEX 1+ (Negative)
[2020-12-12 16:11] LABS: BACTERIA-REFLEX >30 Many /HPF (None Seen)
[2020-12-12 16:12] LABS: CASTS None Seen /LPF (None Seen); CRYSTALS None Seen /LPF (None Seen); SQUAMOUS None Seen /LPF (0-3); URINE RBC 0-2 Rare /HPF (0-2)
[2020-12-12 16:58] VITALS: BP 160/85
[2020-12-12 20:00] VITALS: BP 163/83
[2020-12-13] VITALS (10 sets, daily range): BP systolic 146–171; BP diastolic 52–97
[2020-12-13 05:07] LABS: GLYCOHEMOGLOBIN (HGB A1C) 6.5 % (4.8-5.6)
[2020-12-13 05:15] LABS: HEMATOCRIT 33.8 % (42.0-52.0); MCH 27.6 pg (26.0-34.0); MCHC 32.6 g/dL (28.0-37.0); MCV 84.6 fL (80.0-100.0); WBC 6.4 thou/uL (4.0-11.0)
[2020-12-13 05:51] LABS: CALCIUM 9.1 mg/dL (8.5-10.1); CREATININE 1.1 mg/dL (0.7-1.3); POTASSIUM 4.4 mmol/L (3.5-5.1)
--- NOTE | 2020-12-13 07:37 | EKG ---
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
[2020-12-13] MEDS ORDERED: AVALIDE 300-121 EACH PO (09:25)
--- NOTE | 2020-12-13 15:03 | CATHLAB ---
[facility] [address] [place] [address] INVASIVE PROCEDURE REPORT Name: ZACH NICE Room #: 217-P ADM IN M.R.#: [id number] Admission: 12/11/20 Attend Phys: Ramin Watson MD Discharge: Date of : 48 Report #: [id number] THIS REPORT FOR: cc: Ronnie Hoang MD, Eric K. MD Park, Jin S. MD ~ APPROVED REPORT Study performed: 12/13/2020 10:10:47 Patient Details Patient Status: Out-Patient Room #: The patient is a 70 year-old male Event Personnel Juancarlos York Food Safety Technician, Sarah Rivas RN RN, Juan Manuel Beltrán RTR Scrub, Cassy Wu RTR Monitor Procedures Performed Art Access - R femoral artery* MATY Place w/wo Plasty Single LAD 226017 [place] w/[place] [address] Initial Mod Sed Same Phys/QHP Gr5y 215100 98289 Mod Sed Same Phys/QHP Ea 314375 Hemostasis with Manual pressure Indication Arrhythmia, Dyspnea, The patient presented with sustained ventricular tachycardia. Cardiac catheterization revealed severe occlusions involving the mid LAD and proximal OM1. The patient presents for staged PCI. Risk Factors Hypercholesterolemia, Coronary Artery DiseaseHypertension, Diabetes Previous Procedures/Diagnoses Previous PCI Procedure Narrative The Left Groin^ was infiltrated with 1% Lidocaine subcutaneous anesthesia. A PINNACLE 6FR Sheath #[id number] sheath was inserted into the LFA^. Coronary angiography was performed using coronary diagnostic catheters. Hemostasis was obtained with manual pressure following sheath removal without any complications. The patient tolerated the procedure well and there were no complications associated with the procedure. A hematoma occurred. [facility] [address] [place] [address] INVASIVE PROCEDURE REPORT Name: TEXZACH HERNANDEZ Room #: 217-P [facility] IN [facility].#: [id number] Admission: 12/11/20 Attend Phys: Ramin [facility] Discharge: Date of : 46 Report #: [id number] Intraoperative Conscious Sedation Sedation start time: 1145 Case end Time: 1329 Fentanyl 100 mcg Versed 1 mg Fluoro Time: 15.10 minutes Dose: DAP 31852.70 cGycm2 3619 mGy Contrast Type and Amount: Omnipaque 180 ml Coronary Angiography The patient's coronary anatomy is right dominant. Diagnostic Cath LAD There is a severe stenosis in the mid LAD, 80%. OM1 There is a severe restenotic lesion in the proximal segment, 95%. Hemodynamics The aortic pressure is 191/101 mmHg with a mean of 136 mmHg. PCI Technique Lesion Percutaneous coronary intervention was performed on the mid left anterior descending artery segment. The lesion stenosis prior to intervention was 80% with ELIZ 3 flow. A VISTA 6FR XB 3.5 #[id number] Guide Catheter was used to engage the ostium. A Luge Wire .014 x 182CM #[id number] Interventional Guidewire was used to cross the lesion. BALLOON DILATION A Balloon catheter TREK RX 2.50 X 8 #[id number] was inserted and inflated up to 8.00atm for 14seconds. Additional Inflation: 8.00atm for 5seconds. Additional Inflation: 8.00atm for 6seconds. STENT DEPLOYMENT A drug-eluting stent RESOLUTE MATTHEW RX 2.75 X15 #[id number] was inserted and inflated up to 12.00atm for 26seconds. Additional Inflation: 16.00atm for 18seconds. POST STENT DEPLOYMENT BALLOON DILATION A Balloon catheter TREK NC RX 3.0 X 8 #[id number] was inserted and inflated up to 16.00atm for 21seconds. Additional Inflation: 18.00atm for 11seconds. Additional Inflation: 18.00atm for 12seconds. Final angiography reveals 0 % stenosis with ELIZ 3 flow. [facility] [address] [place] [address] INVASIVE PROCEDURE REPORT Name: TEXZACH HERNANDEZ Room #: 217-P [facility] IN ..#: [id number] Admission: 12/11/20 Attend Phys: Ramin Watson Discharge: Date of : 48 Report #: [id number] PCI Technique Lesion 2 Percutaneous Coronary Intervention was performed on the first obtuse marginal branch segment. The lesion stenosis prior to intervention was 95% with ELIZ 3 flow. A VISTA 6FR XB 3.5 #[id number] Guide Catheter was used to engage the ostium. A Luge Wire .014 x 182CM #[id number] Interventional Guidewire was used to cross the lesion. Balloon Dilation A Balloon catheter TREK NC RX 2.25 X 12 #[id number] was inserted and inflated up to 16.00atm for 19seconds. Additional Inflation: 16.00atm for 9seconds. Additional Inflation: 14.00atm for 10seconds. Stent Deployment A drug-eluting stent RESOLUTE MATTHEW RX 2.5 X 18 #[id number] was inserted and inflated up to 14.00atm for 13seconds. Post Stent Deployment Balloon Dilation A Balloon catheter TREK NC RX 2.5 X 12 #[id number] was inserted and inflated up to 18.00atm for 15seconds. Additional Inflation: 18.00atm for 11seconds. Additional Inflation: 18.00atm for 10seconds. Final angiography reveals 0 % stenosis with ELIZ 3 flow. Conclusion 1. Successful insertion of a drug-eluting stent into the mid LAD stenosis. 2. Successful insertion of a drug-eluting stent into the proximal segment of the first obtuse marginal artery. 3. There are severe stenoses in the distal RCA, recommend medical therapy. 4. Recommend dual antiplatelet therapy and risk factor management. <ELECTRONICALLY SIGNED> By: Juancarlos York MD 12/13/20 1503 1503 1503 Juancarlos York MD /INF
[2020-12-14] VITALS (15 sets, daily range): BP systolic 128–172; BP diastolic 63–101
[2020-12-14 05:03] LABS: HEMATOCRIT 33.2 % (42.0-52.0); HEMOGLOBIN 10.9 gm/dL (14.0-18.0); MCH 27.6 pg (26.0-34.0); MCHC 32.8 g/dL (28.0-37.0); MCV 83.9 fL (80.0-100.0); RBC 3.96 mil/uL (4.50-6.00); RDW 15.3 % (10.5-14.5); WBC 6.5 thou/uL (4.0-11.0)
[2020-12-14 05:12] LABS: ALBUMIN 3.3 g/dL (3.4-5.0); CALCIUM 8.8 mg/dL (8.5-10.1); POTASSIUM 3.8 mmol/L (3.5-5.1); TOTAL BILIRUBIN 0.6 mg/dL (0.2-1.0); TOTAL PROTEIN 7.1 g/dL (6.4-8.2)
--- NOTE | 2020-12-14 07:52 | EKG ---
[address] [place] [address] ELECTROCARDIOGRAM REPORT Name: ZACH NICE HERNANDEZ Room #: 217- ADM IN M.R.#: [id number] Admission: 12/11/20 Attend Phys: Ramin Watson MD Discharge: Date of : 46 Report #: [id number] [facility] Test Date: 2020-12-13 Test Time: 16:07:07 Pat Name: ZACH NICE Department: Room: 217 P Gender: M Fur Cutter: FSCHWALBE : 1950 Requested By: Juancarlos York Order Number: [id number] MD: Loc Knowles Measurements Intervals [place] Rate: 60 P: 41 MT: 166 QRS: 37 QRSD: 99 T: 5 QT: 440 QTc: 440 Interpretive Statements Sinus rhythm No significant abnormality Compared to ECG 12/13/2020 07:28:10 No significant changes Electronically Signed On 12-14-2020 7:52:23 CDT by Loc Knowles [email or web address] <ELECTRONICALLY SIGNED> By: Loc Knowles MD, [facility] 12/14/20 0752 [id number] Loc Knowles MD, FACC /EPI
--- NOTE | 2020-12-14 07:55 | EKG ---
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1950 Requested By: Juancarlos York Order Number: [id number] MD: Loc Knowles Measurements Intervals [place] Rate: 72 P: -16 MS: 160 QRS: 53 QRSD: 82 T: -22 QT: 394 QTc: 432 Interpretive Statements Sinus rhythm Poor R wave progression Nonspecific ST and T wave abnormality Compared to ECG 12/13/2020 16:07:07 Nonspecific change in the ST and T wave segments Electronically Signed On 12-14-2020 7:55:15 CDT by Loc Knowles [email or web address] <ELECTRONICALLY SIGNED> By: Loc Knowles MD, [facility] 12/14/20 [phone] Loc Knowles MD, [facility] /EPI
--- NOTE | 2020-12-14 13:46 | HC ---
[facility] [place] [address] CONSULTATION Name: ZACH NICE Room #: 217-P [facility] IN M.R.#: [id number] Admission: 12/11/20 Attend Phys: Ramin Watson MD Discharge: Date of : 46 Report #: [id number] THIS REPORT FOR: cc: Ronnie Hoang MD, Eric K. MD Forman, John M. MD ~ DATE OF SERVICE: 12/12/2020 HISTORY OF PRESENT ILLNESS: We were asked by Dr. York to see the patient. The patient is a 70-year-old with coronary artery disease. The patient has a history of ventricular arrhythmias, treated with ablation. The patient was seeing Dr. Watson in the office and was found to have sustained ventricular tachycardia with a rate of 110. The patient was admitted to the hospital for further evaluation. In the hospital, the patient had a transesophageal echo that was essentially normal. Cardiac catheterization today shows important 3-vessel coronary artery disease. The patient does have a history of coronary stents and diabetes mellitus and we were asked to see the patient about revascularization. PAST MEDICAL HISTORY: As mentioned; ischemic cardiomyopathy with a history of inferior myocardial infarction, ejection fraction in the 45% range by ventriculogram, diabetes mellitus, hypertension, hyperlipidemia. MEDICATIONS AT HOME: Aspirin, bethanechol, carvedilol, CoQ10, Zetia, finasteride, gabapentin, irbesartan, hydrochlorothiazide, metformin, rosuvastatin, sotalol, spironolactone, tamsulosin. ALLERGIES: NIFEDIPINE, CHOLESTYRAMINE, PRAVASTATIN, SIMVASTATIN, AMLODIPINE. FAMILY HISTORY: Not pertinent. SOCIAL HISTORY: Smoker in the remote past. , retired from his occupation working at the [employer]. REVIEW OF SYSTEMS: GENERAL: No fever, no weight change. EYES: No vision change. HEENT: No headache, no sinus problems. CARDIAC: Some episodic low blood pressure at home with near syncope. RESPIRATORY: Denies cough, wheezing, sputum production. GASTROINTESTINAL: Denies nausea, vomiting, diarrhea. GENITOURINARY: Denies urgency or frequency. MUSCULOSKELETAL: No bone or joint pain. [facility] [address] [place] [address] CONSULTATION Name: ZACH NICE HERNANDEZ Room #: 217-P [facility] IN .R.#: [id number] Admission: 12/11/20 Attend Phys: Ramin Watson MD Discharge: Date of : 46 Report #: [id number] NEUROLOGIC: Numbness in left lower extremity related to impinging disk. The patient had recent disk surgery and was heading toward rehabilitation stint. SKIN: No rash or infection. ENDOCRINE: No goiter, no tremor. PHYSICAL EXAMINATION: VITAL SIGNS: Temperature 37.1, heart rate 60, respiratory rate 20, blood pressure 160/80. HEENT: No scleral icterus. NECK: No mass. I hear no bruit. CHEST: Clear to auscultation. HEART: Rhythm regular, no murmur. ABDOMEN: Soft. EXTREMITIES: Trace edema distally. 2+ dorsalis pedis pulses. No obvious saphenous vein problems. SKIN: No rash or infection. NEUROLOGIC: Moves all 4 extremities, but has numbness in the left lower extremity. PSYCHIATRIC: Shows insight into problem, but is eager to go home and has a bit of denial about the gravity of the situation. ASSESSMENT: The patient has important 3-vessel coronary artery disease with reduced ventricular function in the setting of diabetes mellitus and previous history of stents and old inferior infarct. I have recommended bypass surgery. Risks and details of this were discussed. Options and alternatives were reviewed. Risks include but are not limited to bleeding, infection, anesthesia risks, heart and lung problems, stroke and . The patient understands all of this. At this point, he is eager to go home and return for surgery. I have told the patient that Dr. York may feel differently about this and it is unlikely that the patient will be able to complete his back rehabilitation course without having this ischemia, which is likely to be the substrate for his arrhythmia, treated. The patient and understand all of this and will reflect. We are prepared to perform surgery this coming Thursday with the patient staying and having his preoperative testing, but I will review all of this with Dr. York and again with the patient. Thank you for the consult. <ELECTRONICALLY SIGNED> By: Ever Ashton MD 12/14/20 1346 1522 30 Ever Ashton MD /nt
[2020-12-15] VITALS (7 sets, daily range): BP systolic 111–160; BP diastolic 60–85
[2020-12-15] MEDS ORDERED: SOTALOL 120 MG120 MG PO (10:52)
[2020-12-15] MEDS ORDERED: EFFIENT10 MG PO (10:52)
[2020-12-15] MEDS ORDERED: BACTRIM DS TAB1 EAC1 PO (13:22)
--- NOTE | 2020-12-17 09:17 | EKG ---
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 : 1950 Requested By: Ramin Watson Order Number: [id number] MD: Loc Knowles Measurements Intervals [place] Rate: 98 P: [place]: QRS: -91 QRSD: 147 T: 64 QT: 419 QTc: 536 Interpretive Statements Sinus rhythm with paroxysmal wide-complex tachycardia Nonspecific ST segment abnormality Compared to ECG 12/14/2020 06:57:26 Paroxysmal wide-complex tachycardia is now present Electronically Signed On 12-17-2020 9:16:59 CDT by Loc Knowles [email or web address] <ELECTRONICALLY SIGNED> By: Loc Knowles MD, [facility] 12/17/20 0916 [id number] Loc Knowles MD, [facility] /EPI
== END 2020-12-15 15:00 | disposition home or self-care (01) | DRG 274 ==
LOC: ER 14:06 → EROBS 17:47 → 2N 17:47
PROVIDERS: Emergency Medicine; Internal Medicine Cardiovascular Disease; Nurse Practitioner; Physician Assistant; ADMIT Internal Medicine Cardiovascular Disease; ATTEND Internal Medicine Cardiovascular Disease
DX: I47.2 Ventricular tachycardia (principal); I25.110 Atherosclerotic heart disease of native coronary artery with unstable angina pectoris; E11.9 Type 2 diabetes mellitus without complications; I25.10 Atherosclerotic heart disease of native coronary artery without angina pectoris; E78.5 Hyperlipidemia, unspecified; I10 Essential (primary) hypertension; M19.90 Unspecified osteoarthritis, unspecified site; Z96.652 Presence of left artificial knee joint; I25.5 Ischemic cardiomyopathy; N30.90 Cystitis, unspecified without hematuria; B96.89 Other specified bacterial agents as the cause of diseases classified elsewhere; N40.1 Benign prostatic hyperplasia with lower urinary tract symptoms; Z20.822 Contact with and (suspected) exposure to COVID-19; Z95.5 Presence of coronary angioplasty implant and graft; Z88.8 Allergy status to other drugs, medicaments and biological substances; Z91.040 Latex allergy status; I25.2 Old myocardial infarction
CPT/HCPCS: 10081; 62110; 62900; 70005

== ENCOUNTER → 2020-12-11 | Outpatient (CLI) | payer OTHER ==
[~2020-12-11] MED LIST changes: +AVALIDE 300-121 EACH PO; +BACTRIM DS TAB1 EAC1 PO; +NEURONTIN 300M300 M2 PO; +SOTALOL 120 MG120 MG PO
== END ==
LOC: SJCVC 13:04
PROVIDERS: ATTEND Internal Medicine Cardiovascular Disease
DX: R94.31 Abnormal electrocardiogram [ECG] [EKG] (principal); I45.10 Unspecified right bundle-branch block; I11.9 Hypertensive heart disease without heart failure; I47.2 Ventricular tachycardia; I25.5 Ischemic cardiomyopathy; I25.10 Atherosclerotic heart disease of native coronary artery without angina pectoris; E11.9 Type 2 diabetes mellitus without complications; E78.5 Hyperlipidemia, unspecified; Z98.890 Other specified postprocedural states; Z88.8 Allergy status to other drugs, medicaments and biological substances; Z79.82 Long term (current) use of aspirin; Z79.84 Long term (current) use of oral hypoglycemic drugs; Z79.899 Other long term (current) drug therapy; Z87.891 Personal history of nicotine dependence

== ENCOUNTER → 2021-02-13 | Outpatient (CLI) | payer OTHER ==
[~2021-02-13] MED LIST changes: +AVALIDE 300-121 EACH PO; +BACTRIM DS TAB1 EAC1 PO; +NEURONTIN 300M300 M2 PO; +SOTALOL 120 MG120 MG PO
== END ==
LOC: SJCVC 15:20
PROVIDERS: ATTEND Internal Medicine Cardiovascular Disease
DX: I25.10 Atherosclerotic heart disease of native coronary artery without angina pectoris (principal); I10 Essential (primary) hypertension; E78.00 Pure hypercholesterolemia, unspecified; I47.1 Supraventricular tachycardia; E11.9 Type 2 diabetes mellitus without complications; I42.9 Cardiomyopathy, unspecified; I25.2 Old myocardial infarction; Z98.890 Other specified postprocedural states; Z95.5 Presence of coronary angioplasty implant and graft; Z88.8 Allergy status to other drugs, medicaments and biological substances; Z79.82 Long term (current) use of aspirin; Z79.84 Long term (current) use of oral hypoglycemic drugs; Z79.899 Other long term (current) drug therapy; Z87.891 Personal history of nicotine dependence

== ENCOUNTER → 2021-04-18 | Outpatient (CLI) | payer OTHER | LOC: SJCVC 13:34 | PROVIDERS: ATTEND Internal Medicine Cardiovascular Disease | DX: R94.31 Abnormal electrocardiogram [ECG] [EKG] (principal); I47.1 Supraventricular tachycardia; I49.3 Ventricular premature depolarization; I25.10 Atherosclerotic heart disease of native coronary artery without angina pectoris; I25.5 Ischemic cardiomyopathy; E11.9 Type 2 diabetes mellitus without complications; E78.5 Hyperlipidemia, unspecified; I10 Essential (primary) hypertension; Z98.890 Other specified postprocedural states; Z79.82 Long term (current) use of aspirin; Z79.84 Long term (current) use of oral hypoglycemic drugs; Z79.899 Other long term (current) drug therapy; Z87.891 Personal history of nicotine dependence ==

== ENCOUNTER → 2021-05-16 | Outpatient (CLI) | payer OTHER | LOC: SJCVCIMAG 09:24 | PROVIDERS: ATTEND Internal Medicine Cardiovascular Disease | DX: I49.3 Ventricular premature depolarization (principal); I25.10 Atherosclerotic heart disease of native coronary artery without angina pectoris; I10 Essential (primary) hypertension; E78.00 Pure hypercholesterolemia, unspecified; I47.2 Ventricular tachycardia; I47.1 Supraventricular tachycardia; I25.5 Ischemic cardiomyopathy; I45.10 Unspecified right bundle-branch block; E11.9 Type 2 diabetes mellitus without complications; E78.5 Hyperlipidemia, unspecified; Z87.891 Personal history of nicotine dependence; Z79.82 Long term (current) use of aspirin; Z79.84 Long term (current) use of oral hypoglycemic drugs; Z79.899 Other long term (current) drug therapy; Z88.8 Allergy status to other drugs, medicaments and biological substances ==